=== PATIENT | male | born 2000 | race Caucasian/White ===

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

== ENCOUNTER 2021-12-05 22:51 | Emergency (ER) | payer OTHER ==
[2021-12-05 23:49] VITALS: BP 102/55; PULSE 67; RESP 20; TEMP 97.8
[2021-12-06] MEDS ORDERED: OXYMETAZOLINE 0.05% NASL SPRAY 1 SPRAY BOTTLE NASAL STA (02:26)
--- NOTE | 2021-12-06 02:32 | ED ---
ENT HPI - General Chief complaint: ENT Stated complaint: nose bleed Time Seen by Provider: 12/06/21 02:18 Source: patient, RN notes reviewed Mode of arrival: ambulatory Limitations: no limitations - History of Present Illness Initial comments: Suspect patient's injury is mostly due to soft tissue. She does have some mild tenderness over the growth plate of the distal fibula. Patient placed in an OCL splint. Crutches provided. Orthopedic follow-up given. Treatment plan discussed with the father. All questions answered. Follow-up with your child's physician as directed. Bring your child back to the emergency department immediately if any symptoms worsen or new symptoms develop. Return if any other problems arise. MD complaint: epistaxis - Related Data Previous Rx's Medication Instructions Recorded Ibuprofen [Motrin] 600 mg PO Q8HR PRN #20 tab 01/25/19 Allergies Allergy/AdvReac Type Severity Reaction Status Date / Time No Known Allergies Allergy Verified 01/24/19 18:21 Review of Systems ROS Statement: Those systems with pertinent positive or pertinent negative responses have been documented in the HPI. ROS Other: All systems not noted in ROS Statement are negative. Past Medical History Past Medical History: No Reported History Additional Past Medical History / Comment(s): bloody nose - had to be cauterized History of Any Multi-Drug Resistant Organisms: None Reported Past Surgical History: No Surgical Hx Reported Past Anesthesia/Blood Transfusion Reactions: No Reported Reaction Past Psychological History: No Psychological Hx Reported Smoking Status: Never smoker Past Alcohol Use History: None Reported Past Drug Use History: None Reported - Past Family History Mother Family Medical History: No Reported History Additional Family Medical History / Comment(s): in the family runs diabetes, high cholesterol, hypertension, cabg. Father Family Medical History: No Reported History General Exam Limitations: no limitations General appearance: alert, in no apparent distress Head exam: Present: atraumatic, normocephalic, normal inspection Eye exam: Present: normal appearance, PERRL, EOMI. Absent: scleral icterus, conjunctival injection, periorbital swelling ENT exam: Present: normal exam, normal oropharynx, mucous membranes dry, mucous membranes moist, TM's normal bilaterally, normal external ear exam, other Neck exam: Present: normal inspection, full ROM. Absent: tenderness, meningismus, lymphadenopathy Respiratory exam: Present: normal lung sounds bilaterally, other (Patient has evidence of dried blood at the external meatus of both nares. Evidence of recent bleeding from the left nasal septum. No current bleeding.). Absent: respiratory distress, wheezes, rales, rhonchi, stridor, chest wall tenderness, accessory muscle use Cardiovascular Exam: Present: regular rate, normal rhythm, normal heart sounds. Absent: systolic murmur, diastolic murmur, rubs, gallop, clicks GI/Abdominal exam: Present: soft, normal bowel sounds. Absent: distended, tenderness, guarding, rebound, rigid Extremities exam: Present: normal inspection, full ROM, normal capillary refill. Absent: tenderness, pedal edema, joint swelling, calf tenderness Back exam: Present: normal inspection Neurological exam: Present: alert, oriented X3, CN II-XII intact Psychiatric exam: Present: normal affect, normal mood Skin exam: Present: warm, dry, intact, normal color. Absent: rash Course Vital Signs 12/05/21 23:43 Temperature 97.8 F Pulse Rate 67 Respiratory 20 Rate Blood Pressure 102/55 O2 Sat by Pulse 96 Oximetry Medical Decision Making - Medical Decision Making Afrin nasal spray, 2 sprays to each there twice daily for 3 days. Patient given follow-up with ENT. Patient had no bleeding present time I saw him. Patient hemodynamically stable. Did not appear to be ill or toxic. Patient was told to return to the ER for any signs or symptoms worsen. Told to return immediately if any other problems arise. All questions answered. Treatment plan discussed. Patient in agreement Every effort has been made to ensure accuracy of this dictation. However, due to the limitations of electronic medical records and dictation devices, errors in charting still occur. Disposition Clinical Impression: Anterior epistaxis Disposition: HOME SELF-CARE Condition: Good Instructions (If sedation given, give patient instructions): Nosebleed (ED) Additional Instructions: Use the nasal spray, 2 sprays to each nostril every 12 hours for 3 days. The rest not to manipulate her nose. Make a follow-up with ear nose and throat doctor as needed. Alternatively, he can make a follow-up appointment with your regular doctor. Return if any rebleeding occurs. Is patient prescribed a controlled substance at d/c from ED?: No Referrals: Sarah Han MD [Primary Care Provider] - 1-2 days Mohit Spaulding MD [STAFF PHYSICIAN] - 12/09/21 Time of Disposition: 02:31
== END 2021-12-06 03:06 | disposition home or self-care (01) ==
LOC: EC 22:51
DX: R04.0 Epistaxis (principal)
CPT/HCPCS: 99283

== ENCOUNTER 2022-01-31 15:00 | Emergency (ER) | payer OTHER ==
[2022-01-31 15:12] VITALS: RESP 18; TEMP 98.2
--- NOTE | 2022-01-31 15:42 | ED ---
General Adult HPI - General Chief complaint: Syncope Stated complaint: syncope Time Seen by Provider: 01/31/22 15:06 Source: patient, family, EMS, RN notes reviewed Mode of arrival: EMS - History of Present Illness Initial comments: Patient is a pleasant 21-year-old male who presents to the emergency room via EMS accompanied by his mother and brother after a witnessed syncopal episode at a family gathering. He was eased to the ground at the time of the event consequently there was no trauma to any extremity or his head. There were several nurses at the scene and report that he was in what appeared to be a postictal like state for several minutes after the event. He has had one other episode of syncope when he had appendicitis prior to his appendectomy. He does admit to some pain up for approximately 36 hours. He has had episodes of dizziness in the past. He and his mother deny any known family history of seizures. He does have a family history significant for cardiovascular disease and diabetes. He is not on any medications on a regular basis and has no s ignificant past medical history. He does report that he wears earplugs for work and has occasional ear canal bleeding to his right ear from the ear plugged not fitting properly however he denies any tendinitis or ear pain. He reports no complaints or concerns prior to the event at this time he now feels well again. - Related Data Previous Rx's Medication Instructions Recorded Ibuprofen [Motrin] 600 mg PO Q8HR PRN #20 tab 01/25/19 Allergies Allergy/AdvReac Type Severity Reaction Status Date / Time No Known Allergies Allergy Verified 01/31/22 15:12 Review of Systems ROS Statement: Those systems with pertinent positive or pertinent negative responses have been documented in the HPI. ROS Other: All systems not noted in ROS Statement are negative. Past Medical History Past Medical History: No Reported History Additional Past Medical History / Comment(s): bloody nose - had to be cauterized History of Any Multi-Drug Resistant Organisms: None Reported Past Surgical History: No Surgical Hx Reported Past Anesthesia/Blood Transfusion Reactions: No Reported Reaction Past Psychological History: No Psychological Hx Reported Smoking Status: Never smoker Past Alcohol Use History: None Reported Past Drug Use History: None Reported - Past Family History Mother Family Medical History: No Reported History Additional Family Medical History / Comment(s): in the family runs diabetes, high cholesterol, hypertension, cabg. Father Family Medical History: No Reported History General Exam General appearance: alert, in no apparent distress Head exam: Present: atraumatic, normocephalic, normal inspection Eye exam: Present: normal appearance, PERRL, EOMI. Absent: scleral icterus, conjunctival injection, nystagmus, periorbital swelling ENT exam: Present: normal exam, mucous membranes moist Expanded Ear exam: Present: normal external inspection TM/Canal exam: Canal Tenderness: Right TM Mouth exam: Present: normal external inspection Neck exam: Present: normal inspection. Absent: tenderness, meningismus, lymphadenopathy Respiratory exam: Present: normal lung sounds bilaterally. Absent: respiratory distress, wheezes, rales, rhonchi, stridor Cardiovascular Exam: Present: regular rate, normal rhythm, normal heart sounds. Absent: systolic murmur, diastolic murmur, rubs, gallop, clicks GI/Abdominal exam: Present: soft, normal bowel sounds. Absent: distended, tenderness, guarding, rebound, rigid Extremities exam: Present: normal inspection, full ROM, normal capillary refill. Absent: tenderness, pedal edema, joint swelling, calf tenderness Back exam: Present: normal inspection Neurological exam: Present: alert, oriented X3, CN II-XII intact Psychiatric exam: Present: normal affect, normal mood Skin exam: Present: warm, dry, intact, normal color. Absent: rash Course Vital Signs 01/31/22 01/31/22 01/31/22 15:04 15:51 17:12 Temperature 98.2 F Pulse Rate 62 66 Respiratory 18 18 Rate Blood Pressure 99/49 102/54 106/56 O2 Sat by Pulse 98 97 Oximetry Medical Decision Making - Medical Decision Making Given concern for postictal event will check CT of the brain. Will check CBC and BMP to check for dehydration and anemia. Along with infectious process. Will check urinalysis for urinary tract infection and urine drug screen. Will check EKG for acute abnormalities. No murmurs gallops or rubs heard on exam. No neurological deficits noted on exam. Given extensive diabetic history will also check A1c.. Currently resting comfortably without any altered mental status dizziness or nausea. Will monitor. Labs without acute abnormalities. EKG shows mild bradycardia without other abnormalities. Vital signs stable though low normal blood pressure. No further episodes of syncope. Computed tomography scan without acute cranial intracranial processes. Symptoms likely due to vagal event 1 L fluid bolus given. Findings discussed with patient and family. Will plan for discharge home with follow-up for with PCP for further syncopal workup. Case discussed with Naya. - Lab Data Result diagrams: 01/31/22 15:55 01/31/22 15:55 Lab Results 01/31/22 01/31/22 01/31/22 Range/Units 15:55 15:55 15:55 WBC 9.0 (4.0-11.0) k/uL RBC 4.49 (4.30-5.90) m/uL Hgb 13.7 (13.0-17.5) gm/dL Hct 40.5 (39.0-53.0) % MCV 90.2 (80.0-100.0) fL MCH 30.5 (25.0-35.0) pg MCHC 33.8 (31.0-37.0) g/dL RDW 12.3 (11.5-15.5) % Plt Count 226 (150-450) k/uL MPV 7.8 Neutrophils % 70 % Lymphocytes % 17 % Monocytes % 9 % Eosinophils % 2 % Basophils % 1 % Neutrophils # 6.3 (1.3-7.7) k/uL Lymphocytes # 1.5 (1.0-4.8) k/uL Monocytes # 0.8 (0-1.0) k/uL Eosinophils # 0.1 (0-0.7) k/uL Basophils # 0.1 (0-0.2) k/uL Sodium 139 (137-145) mmol/L Potassium 4.2 (3.5-5.1) mmol/L Chloride 106 (98-107) mmol/L Carbon Dioxide 28 (22-30) mmol/L Anion Gap 5 mmol/L BUN 16 (9-20) mg/dL Creatinine 0.95 (0.66-1.25) mg/dL Est GFR (CKD-EPI)AfAm >90 (>60 ml/min/1.73 sqM) Est GFR (CKD-EPI)NonAf >90 (>60 ml/min/1.73 sqM) Glucose 96 (74-99) mg/dL Calcium 9.3 (8.4-10.2) mg/dL Total Bilirubin 1.3 (0.2-1.3) mg/dL AST 31 (17-59) U/L ALT 23 (4-49) U/L Alkaline Phosphatase 84 (38-126) U/L Troponin I (0.000-0.034) ng/mL Total Protein 7.1 (6.3-8.2) g/dL Albumin 4.4 (3.5-5.0) g/dL Urine Color Yellow Urine Appearance Clear (Clear) Urine pH 6.5 (5.0-8.0) Ur Specific [place] 1.030 (1.001-1.035) Urine Protein 1+ H (Negative) Urine Glucose (UA) Negative (Negative) Urine Ketones Negative (Negative) Urine Blood Negative (Negative) Urine Nitrite Negative (Negative) Urine Bilirubin Negative (Negative) Urine Urobilinogen 2.0 (<2.0) mg/dL Ur Leukocyte Esterase Negative (Negative) Urine RBC 11 H (0-5) /hpf Urine WBC 4 (0-5) /hpf Ur Squamous Epith Cells <1 (0-4) /hpf Urine Bacteria Moderate H (None) /hpf Urine Mucus Few H (None) /hpf Urine Opiates Screen Not Detected (NotDetected) Ur Oxycodone Screen Not Detected (NotDetected) Urine Methadone Screen Not Detected (NotDetected) Ur Propoxyphene Screen Not Detected (NotDetected) Ur Barbiturates Screen Not Detected (NotDetected) U Tricyclic Antidepress Not Detected (NotDetected) Ur Phencyclidine Scrn Not Detected (NotDetected) Ur Amphetamines Screen Not Detected (NotDetected) U Methamphetamines Scrn Not Detected (NotDetected) U Benzodiazepines Scrn Not Detected (NotDetected) Urine Cocaine Screen Not Detected (NotDetected) U Marijuana (THC) Screen Not Detected (NotDetected) 01/31/22 Range/Units 15:55 WBC (4.0-11.0) k/uL RBC (4.30-5.90) m/uL Hgb (13.0-17.5) gm/dL Hct (39.0-53.0) % MCV (80.0-100.0) fL MCH (25.0-35.0) pg MCHC (31.0-37.0) g/dL RDW (11.5-15.5) % Plt Count (150-450) k/uL MPV Neutrophils % % Lymphocytes % % Monocytes % % Eosinophils % % Basophils % % Neutrophils # (1.3-7.7) k/uL Lymphocytes # (1.0-4.8) k/uL Monocytes # (0-1.0) k/uL Eosinophils # (0-0.7) k/uL Basophils # (0-0.2) k/uL Sodium (137-145) mmol/L Potassium (3.5-5.1) mmol/L Chloride (98-107) mmol/L Carbon Dioxide (22-30) mmol/L Anion Gap mmol/L BUN (9-20) mg/dL Creatinine (0.66-1.25) mg/dL Est GFR (CKD-EPI)AfAm (>60 ml/min/1.73 sqM) Est GFR (CKD-EPI)NonAf (>60 ml/min/1.73 sqM) Glucose (74-99) mg/dL Calcium (8.4-10.2) mg/dL Total Bilirubin (0.2-1.3) mg/dL AST (17-59) U/L ALT (4-49) U/L Alkaline Phosphatase (38-126) U/L Troponin I <0.012 (0.000-0.034) ng/mL Total Protein (6.3-8.2) g/dL Albumin (3.5-5.0) g/dL Urine Color Urine Appearance (Clear) Urine pH (5.0-8.0) Ur Specific [place] (1.001-1.035) Urine Protein (Negative) Urine Glucose (UA) (Negative) Urine Ketones (Negative) Urine Blood (Negative) Urine Nitrite (Negative) Urine Bilirubin (Negative) Urine Urobilinogen (<2.0) mg/dL Ur Leukocyte Esterase (Negative) Urine RBC (0-5) /hpf Urine WBC (0-5) /hpf Ur Squamous Epith Cells (0-4) /hpf Urine Bacteria (None) /hpf Urine Mucus (None) /hpf Urine Opiates Screen (NotDetected) Ur Oxycodone Screen (NotDetected) Urine Methadone Screen (NotDetected) Ur Propoxyphene Screen (NotDetected) Ur Barbiturates Screen (NotDetected) U Tricyclic Antidepress (NotDetected) Ur Phencyclidine Scrn (NotDetected) Ur Amphetamines Screen (NotDetected) U Methamphetamines Scrn (NotDetected) U Benzodiazepines Scrn (NotDetected) Urine Cocaine Screen (NotDetected) U Marijuana (THC) Screen (NotDetected) - EKG Data EKG Comments: EKG shows sinus bradycardia, ventricular rate 56 bpm UT interval 121 ms, QRS duration 96 ms, QT/QTC 388/380 ms, PRT axes 27, 73, 64. - Radiology Data Radiology results: report reviewed, image reviewed CT brain without contrast ventricles have normal size. There is no mass effect or midline shift. No sign of intracranial hemorrhage. The capillary and is intact. There is normal aeration of the mastoids and sinuses Disposition Clinical Impression: Vasovagal syncope Disposition: HOME SELF-CARE Condition: Stable Instructions (If sedation given, give patient instructions): Syncope (ED) Additional Instructions: Please stay well hydrated especially when out in the heat. If feeling dizzy change positions slowly and maintain safety. Please follow-up with your primary care provider regarding possible further syncopal workup. Please return to the emergency room if symptoms worsen or other concerns. Is patient prescribed a controlled substance at d/c from ED?: No Referrals: Sarah Han MD [Primary Care Provider] - 1-2 days Time of Disposition: 17:59
--- NOTE | 2022-01-31 16:00 | CT ---
EXAMINATION TYPE: CT brain wo con DATE OF EXAM: 01/31/2022 COMPARISON: 03/04/2011 HISTORY: syncope CT DLP: 1198.4 mGycm Automated exposure control for dose reduction was used. Ventricles have normal size. There is no mass effect or midline shift. No sign of intracranial hemorr lynn. The calvarium is intact. There is normal aeration of the mastoid sinuses. IMPRESSION: Negative CT scan of the brain.
[2022-01-31 16:12] LABS: Basophils # (A) 0.1 k/uL (0-0.2); Basophils % (A) 1 %; Eosinophils # (A) 0.1 k/uL (0-0.7); Eosinophils % (A) 2 %; HCT 40.5 % (39.0-53.0); HGB 13.7 gm/dL (13.0-17.5); Lymphocytes # (A) 1.5 k/uL (1.0-4.8); Lymphocytes % (A) 17 %; MCH 30.5 pg (25.0-35.0); MCHC 33.8 g/dL (31.0-37.0); MCV 90.2 fL (80.0-100.0); Mean Platelet Volume 7.8; Monocytes # (A) 0.8 k/uL (0-1.0); Monocytes % (A) 9 %; Neutrophils # (A) 6.3 k/uL (1.3-7.7); Neutrophils % (A) 70 %; Platelet Count 226 k/uL (150-450); RBC 4.49 m/uL (4.30-5.90); RDW 12.3 % (11.5-15.5)
[2022-01-31 16:17] LABS: ALT 23 U/L (4-49); AST 31 U/L (17-59); African American GFR (CKD) >90 (>60 ml/min/1.73 sqM); Albumin 4.4 g/dL (3.5-5.0); Alkaline Phosphatase 84 U/L (38-126); Anion Gap 5 mmol/L; Blood Urea Nitrogen 16 mg/dL (9-20); Calcium 9.3 mg/dL (8.4-10.2); Carbon Dioxide 28 mmol/L (22-30); Chloride 106 mmol/L (98-107); Glucose 96 mg/dL (74-99); Non-African American GFR(CKD) >90 (>60 ml/min/1.73 sqM); Potassium 4.2 mmol/L (3.5-5.1); Sodium 139 mmol/L (137-145); Total Bilirubin 1.3 mg/dL (0.2-1.3); Total Protein 7.1 g/dL (6.3-8.2)
[2022-01-31 16:28] LABS: Amphetamine Screen,Urine Not Detected (NotDetected); Appearance,Urine Clear (Clear); Bacteria,Urine Moderate /hpf; Barbiturate Screen,Urine Not Detected (NotDetected); Benzodiazepines Screen,Urine Not Detected (NotDetected); Bilirubin,Urine Negative (Negative); Blood,Urine Negative (Negative); Cocaine Screen,Urine Not Detected (NotDetected); Color,Urine Yellow; Glucose,Urine (UA) Negative (Negative); Ketones,Urine Negative (Negative); Leukocyte Esterase,Urine Negative (Negative); Methadone Screen, Urine Not Detected (NotDetected); Mucus,Urine Few /hpf; Nitrite,Urine Negative (Negative); Opiate Screen,Urine Not Detected (NotDetected); Oxycodone Screen, Urine Not Detected (NotDetected); PH, Urine 6.5 (5.0-8.0); Phencyclidine Screen,Urine Not Detected (NotDetected); Protein,Urine 1+ (Negative); RBC,Urine 11 /hpf (0-5); Squamous Epithelial Cell,Urine <1 /hpf (0-4); Tricyclic Antidepressant,Urine Not Detected (NotDetected); Urn Cannabinoid Scrn Not Detected (NotDetected); WBC,Urine 4 /hpf (0-5)
[2022-01-31 17:14] VITALS: BP 106/56; PULSE 66
[2022-01-31] MEDS ORDERED: SODIUM CHLORIDE 0.9% 1,000 ML IV ONE (17:15)
== END 2022-01-31 18:23 | disposition home or self-care (01) ==
LOC: EC 15:00
DX: R55 Syncope and collapse (principal)
CPT/HCPCS: 36415; 70450; 80053; 80306; 81001; 83036; 84484; 85025; 93005; 99284

== ENCOUNTER 2023-11-29 17:29 | Inpatient (IN) | payer BC, OTHER ==
--- NOTE | 2023-11-29 18:07 | ED ---
General Adult HPI - General Chief complaint: Psychiatric Symptoms Stated complaint: mental health Time Seen by Provider: 11/29/23 17:47 Source: patient, family, RN notes reviewed, old records reviewed Mode of arrival: ambulatory Limitations: no limitations - History of Present Illness Initial comments: 23-year-old male presenting for psychiatric evaluation. Patient has suicidal ideation with suicidal plan to jump in the water. He does deal with anxiety and depression. He is accompanied by his mother. He has no physical complaints at this time. - Related Data Home Medications Medication Instructions Recorded Confirmed Citalopram Hydrobromide [CeleXA] 40 mg PO DAILY 11/29/23 11/29/23 buPROPion XL [Wellbutrin XL] 150 mg PO DIRECTED 11/29/23 11/29/23 busPIRone HCl [Buspar] 10 mg PO BID 11/29/23 11/29/23 Allergies Allergy/AdvReac Type Severity Reaction Status Date / Time No Known Allergies Allergy Verified 11/29/23 18:19 Review of Systems ROS Statement: Those systems with pertinent positive or pertinent negative responses have been documented in the HPI. ROS Other: All systems not noted in ROS Statement are negative. Past Medical History Past Medical History: No Reported History Additional Past Medical History / Comment(s): bloody nose - had to be cauterized History of Any Multi-Drug Resistant Organisms: None Reported Past Surgical History: No Surgical Hx Reported Past Anesthesia/Blood Transfusion Reactions: No Reported Reaction Past Psychological History: No Psychological Hx Reported Smoking Status: Never smoker Past Alcohol Use History: None Reported Past Drug Use History: None Reported - Past Family History Mother Family Medical History: No Reported History Additional Family Medical History / Comment(s): in the family runs diabetes, high cholesterol, hypertension, cabg. Father Family Medical History: No Reported History General Exam Limitations: no limitations General appearance: alert, anxious Head exam: Present: atraumatic, normocephalic Eye exam: Present: normal appearance, PERRL ENT exam: Present: normal oropharynx Neck exam: Present: normal inspection. Absent: tenderness, meningismus Respiratory exam: Present: normal lung sounds bilaterally. Absent: respiratory distress, wheezes Cardiovascular Exam: Present: regular rate, normal rhythm GI/Abdominal exam: Present: soft. Absent: distended, tenderness Extremities exam: Present: normal inspection, normal capillary refill Neurological exam: Present: alert, oriented X3, CN II-XII intact. Absent: motor sensory deficit Psychiatric exam: Present: normal affect, normal mood Skin exam: Present: warm, dry, intact Course Vital Signs 11/29/23 17:42 Temperature 98.3 F Pulse Rate 74 Respiratory 18 Rate Blood Pressure 129/78 O2 Sat by Pulse 99 Oximetry Medical Decision Making - Medical Decision Making Was pt. sent in by a medical professional or institution (, SANTI, DRUG AND ALCOHOL COUNSELOR, urgent care, hospital, or [facility]...) When possible be specific @ -No Did you speak to anyone other than the patient for history (EMS, parent, family, police, friend...)? What history was obtained from this source @ -No Did you review nursing and triage notes (agree or disagree)? Why? @ -I reviewed and agree with nursing and triage notes Were old charts reviewed (outside hosp., previous admission, EMS record, old EKG, old radiological studies, urgent care reports/EKG's, [facility] records)? Report findings @ -No old charts were reviewed Differential Mental Health Depression, anxiety, bipolar, psychosis, schizophrenia, borderline personality, situational depression, adjustment disorder, behavioral disorder, brain tumor, malingering, substance abuse, encephalopathy, medication reaction, dementia, hypothyroidism, degenerative neurologic disorder, lupus.... This is not meant to be all-inclusive list EKG interpreted by me (3pts min.). @ -As above X-rays interpreted by me (1pt min.). @ -None done CT interpreted by me (1pt min.). @ -None done U/S interpreted by me (1pt. min.). @ -None done What testing was considered but not performed or refused? (CT, X-rays, U/S, labs)? Why? @ -None What meds were considered but not given or refused? Why? @ -None Did you discuss the management of the patient with other professionals (professionals i.e. SANTI Lara, DRUG AND ALCOHOL COUNSELOR, lab, RT, psych nurse, social sciences professor, grinder chipper, teacher, workers' compensation hearings officer, hospice case manager)? Give summary @ -No Was smoking cessation discussed for >3mins.? @ -No Was critical care preformed (if so, how long)? @Yes, 35 minutes for suicidal ideation with plan. Were there social determinants of health that impacted care today? How? (Homelessness, low income, unemployed, alcoholism, drug addiction, transportation, low edu. Level, literacy, decrease access to med. care, [place] [facility], rehab)? @ -No Was there de-escalation of care discussed even if they declined (Discuss DNR or withdrawal of care, Hospice)? DNR status @ -No What co-morbidities impacted this encounter? (DM, HTN, Smoking, COPD, CAD, Cancer, CVA, ARF, Chemo, Hep., AIDS, mental health diagnosis, sleep apnea, morbid obesity)? @Anxiety and depression Was patient admitted / discharged? Hospital course, mention meds given and route, prescriptions, significant lab abnormalities, going to OR and other pertinent info. @ -Patient medically cleared and awaiting EPS evaluation Patient was evaluated by EPS and will be admitted for depression with suicidal ideation and active suicidal plan. Critical Care Time Critical Care Time: Yes Total Critical Care Time: 35 Disposition Clinical Impression: Suicidal ideation, Depression Disposition: ADMITTED IP TO THIS HOSP Condition: Stable Is patient prescribed a controlled substance at d/c from ED?: No Referrals: None,Stated [Primary Care Provider] - 1-2 days Time of Disposition: 20:42
[2023-11-29] MEDS ORDERED: haloperidoL 5 MG TAB PO PRN (23:43)
[2023-11-29] MEDS ORDERED: MAG HYDROX/AL HYDROX/SIMETH 355 ML BOTTLE PO PRN (23:43)
[2023-11-29] MEDS ORDERED: LORazepam 2 MG/ML INJ IM PRN (23:43)
[2023-11-29] MEDS ORDERED: IBUPROFEN 600 MG TAB PO PRN (23:43)
[2023-11-29] MEDS ORDERED: HALOPERIDOL LACTATE 5 MG/ML 1 ML VIAL IM PRN (23:43)
[2023-11-29] MEDS ORDERED: ACETAMINOPHEN TAB 325 MG TAB PO PRN (23:43)
[2023-11-29] MEDS ORDERED: MAGNESIUM HYDROXIDE 2,400 MG/30 ML CUP PO PRN (23:43)
[2023-11-30] MEDS: busPIRone HCl 10 MG TAB PO SCH ×2 (09:17→20:58)
[2023-11-30 12:17] LABS: Basophils % (A) 1 %; Eosinophils # (A) 0.1 k/uL (0-0.7); Eosinophils % (A) 2 %; HCT 48.7 % (39.0-53.0); HGB 16.3 gm/dL (13.0-17.5); Lymphocytes # (A) 1.8 k/uL (1.0-4.8); Lymphocytes % (A) 35 %; MCH 30.4 pg (25.0-35.0); MCHC 33.4 g/dL (31.0-37.0); Mean Platelet Volume 7.7; Monocytes # (A) 0.4 k/uL (0-1.0); Monocytes % (A) 9 %; Neutrophils # (A) 2.6 k/uL (1.3-7.7); Neutrophils % (A) 50 %; Platelet Count 214 k/uL (150-450); RBC 5.35 m/uL (4.30-5.90); RDW 12.9 % (11.5-15.5); WBC 5.2 k/uL (3.8-10.6)
[2023-11-30 12:22] LABS: ALT 15 U/L (4-49); AST 26 U/L (17-59); African American GFR (CKD) >90 (>60 ml/min/1.73 sqM); Alkaline Phosphatase 66 U/L (38-126); Anion Gap 8 mmol/L; Bilirubin, Delta 0.1 mg/dL (0.0-0.2); Bilirubin,Unconjugated 3.1 mg/dL (0.0-1.1); Blood Urea Nitrogen 18 mg/dL (9-20); Calcium 9.9 mg/dL (8.4-10.2); Carbon Dioxide 28 mmol/L (22-30); Chloride 104 mmol/L (98-107); Glucose 79 mg/dL (74-99); Non-African American GFR(CKD) >90 (>60 ml/min/1.73 sqM); Potassium 4.3 mmol/L (3.5-5.1); Sodium 140 mmol/L (137-145); Total Bilirubin 3.2 mg/dL (0.2-1.3); Total Protein 8.4 g/dL (6.3-8.2)
--- NOTE | 2023-11-30 12:27 | P.HP ---
Psychiatric H&P - . H&P Date: 11/30/23 History & Physical: Allergies Allergy/AdvReac Type Severity Reaction Status Date / Time No Known Allergies Allergy Verified 11/29/23 23:47 Vital Signs Temp 97.9 F 11/30/23 06:41 Pulse 56 L 11/30/23 06:41 Resp 14 11/30/23 06:41 BP 89/52 11/30/23 06:41 Pulse Ox 98 11/30/23 00:51 FiO2 Intake & Output 11/29/23 11/30/23 11/30/23 18:59 06:59 18:59 Weight 57.606 kg 55.99 kg Laboratory Last Values Influenza Type A (PCR) Not Detected (Not Detectd) 11/29/23 22:44 Influenza Type B (PCR) Not Detected (Not Detectd) 11/29/23 22:44 RSV (PCR) Not Detected (Not Detectd) 11/29/23 22:44 SARS-CoV-2 (PCR) Not Detected (Not Detectd) 11/29/23 22:44 11/30/23 08:51 IDENTIFYING DATA: Patient is a 23-year-old male. Lives in an apartment with his recent ex-girlfriend. Works in a factory. No children. HPI: Patient presented to the hospital on 11/28. As per EPS note, "pt's mother, Marion, at bedside; Marion remained at pt's request. pt presents with flat affect and soft tone. pt states, "I was going to jump in the river after work." pt reports that he has been struggling with multiple stressors recently. pt had apparently met his ex-girlfriend on a dating site and had signed a lease for the apartment with her after a couple of weeks. 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 pt states that he is now paying all the bills as well. pt also reports that he had lost his debit card and had a lot of fraudulant charges. pt states that he had told his ex that he was going to jump in the river and she called police. pt states that the police and her brother met him at work and brought him to the hospital. pt continues to report SI with plan. pt denies HI and hallucinations. No delusional thoughts verbalized. pt cooperative with assessment." Upon todays interview, patient states that he has been fighting with his girlfriend in the past month, which led to them breaking up. States he went to work, and just kept thinking about the fighting, and states that he had a plan to jump in the river, and he wanted to disappear. Claims he feels fine right now, but prior to coming in, he has been depressed, and anxious. Patient states he sleeps well, and his appetite is good. Patient denies any suicidal or homicidal ideations intent or plan. At this time patient denies any auditory or visual hallucinations. Patient denies any flight of ideas racing thoughts and increased in goal directed behavior. Patient admits to using marijuana, very rarely. Rarely drinks alcohol. PAST PSYCHIATRIC HISTORY: Patient states that he does sees someone through [facility] . Patient is on Celexa and Buspar. He sees a AUTO PORTER there. No previous psych admissions, never attempted suicide PMH:As per ER note ALLERGIES: as per EMR CHEMICAL DEPENDENCY HISTORY: as per HPI FAMILY PSYCHIATRIC/SUBSTANCE USE HISTORY: Depression on his mothers side. SOCIAL HISTORY: Patient was born and raised in [place]. High school graduate. lives in an apartment with his ex, no children. Works in a factory. Denies legal problems MENTAL STATUS EXAM: General Appearance: Patient appears to be stated age is alert, directable, and attempts to cooperate. Patient appears to have good hygiene and grooming. Dressed in his own clothes, wearing glasses. Behavior: Patient is seated without any agitated behavior. Speech: Patient's speech is fluent and nonpressured. soft tone of voice Mood/Affect: Patient reports their mood is depressed, affect is congruent and constricted. flat. Suicidality/Homicidality: Patient denies having any homicidal ideation intent or plan. Denies any suicidal ideations intent or plan Perceptions: Patient denies any visual hallucinations and denies any auditory hallucinations Though content/process: There is no evidence of any delusional thought content and thought process is linear and goal-directed. Memory and concentration: AOX3, grossly intact for the purposes of this session. Can spell "WORLD" backwards Judgment and insight: Poor STRENGTHS/WEAKNESSES: strength is that patient is resilient. 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 Patient has signed adult voluntary form and medication consent and is placed in patient's chart. -Medications : Will start patient on buspar 20mg bid for anxiety, zoloft 50mg daily for depression/anxiety, trazodone 50mg po qhs prn for sleep -Ativan and Haldol PRN for agitation/aggression -Patient was counselled on substance abuse and desired to cut back on use -Patient was informed of the risks, benefits and side effects of the medication and patient verbally consented to taking the medications. -Internal Medicine consult to perform medical evaluation and physical. -NRT -nicotine patch -SW on board for discharge planning. Encourage patient to participate in groups to work on coping skills. 11/30/23 12:06
[2023-11-30] MEDS: SERTRALINE 50 MG TAB PO SCH (12:36)
[2023-11-30 19:22] LABS: Chol/HDL Ratio 2.69 Ratio; LDL Cholesterol,Calculated 103.9 mg/dL (0.0-131.0); VLDL Calculation 10.44 mg/dL (5.00-40.00)
--- NOTE | 2023-12-01 04:37 | P.CONS ---
History of Present Illness - Reason for Consult Consult date: 12/01/23 - History of Present Illness The patient is a 23-year-old male with no known PMH who had presented to the emergency room with complaints of depression with suicidal ideation. Patient was admitted to the mental health unit where he was seen and evaluated. Patient notes that he has been struggling with his mental health due to multiple fights with his girlfriend. He denies any physical complaints at the time of intervi ew. He denies tobacco use, alcohol use, or illicit substance use. Denies experiencing chest discomfort, shortness of breath, fever, chills, cough, nausea, vomiting, abdominal pain, diarrhea. Review of systems: Pertinent positives and negatives as discussed in HPI, a complete review of systems was performed and all other systems are negative. Physical examination: General: non toxic, no distress, appears at stated age, normal weight Derm: no unusual rashes/lesions, no unusual ecchymoses, warm, dry Head: atraumatic, normocephalic, symmetric Eyes: EOMI, no lid lag, anicteric sclera ENT: Nose and ears atraumatic, no thrush, no pharyngeal erythema Neck: trachea midline, supple Mouth: no lip lesion, mucus membranes moist Cardiovascular: S1S2 reg, no murmur, no edema Lungs: CTA bilateral, no rhonchi, no rales , no accessory muscle use Abdominal: soft, nontender to palpation, no guarding Ext: no gross muscle atrophy, no contractures, Neuro: No gross focal neuro deficits noted Psych: Alert, oriented, appropriate affect Assessment: Depression and suicidal ideation Elevated total bilirubin, low unconjugated bilirubin, 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 We will follow peripherally. Do not hesitate to contact us with questions. Someone can be reached from the [facility] hospitalist group at all hours of the day at [phone]. Past Medical History Past Medical History: No Reported History Additional Past Medical History / Comment(s): bloody nose - had to be cauterized History of Any Multi-Drug Resistant Organisms: None Reported Past Surgical History: No Surgical Hx Reported Past Anesthesia/Blood Transfusion Reactions: No Reported Reaction Past Psychological History: No Psychological Hx Reported Smoking Status: Never smoker Past Alcohol Use History: None Reported Additional Past Alcohol Use History / Comment(s): father smokes outside of home Past Drug Use History: None Reported - Past Family History Mother Family Medical History: No Reported History Additional Family Medical History / Comment(s): in the family runs diabetes, high cholesterol, hypertension, cabg. Father Family Medical History: No Reported History Medications and Allergies Home Medications Medication Instructions Recorded Confirmed Type Citalopram Hydrobromide [CeleXA] 40 mg PO DAILY 11/29/23 11/29/23 History buPROPion XL [Wellbutrin XL] 150 mg PO DIRECTED 11/29/23 11/29/23 History busPIRone HCl [Buspar] 10 mg PO BID 11/29/23 11/29/23 History Allergies Allergy/AdvReac Type Severity Reaction Status Date / Time No Known Allergies Allergy Verified 11/29/23 23:47 Physical Exam Vitals: Vital Signs Temp Pulse Resp BP 11/30/23 06:41 97.9 F 56 L 14 89/52 Results CBC & Chem 7: 11/30/23 11:35 11/30/23 11:35 Labs: Abnormal Lab Results - Last 24 Hours (Table) 11/30/23 Range/Units 11:35 Total Bilirubin 3.2 H (0.2-1.3) mg/dL Unconjugated Bilirubin 3.1 H (0.0-1.1) mg/dL Total Protein 8.4 H (6.3-8.2) g/dL HDL Cholesterol 67.70 H (40.00-60.00) mg/dL TSH 0.440 L (0.465-4.680) mIU/L
--- NOTE | 2023-12-01 11:24 | P.PN ---
Progress Note - Text Progress Note Date: 12/01/23 Interval History: Patient was seen [wandering the hallways] and was directable and agreeable to speak with sheet writer in the office. Patient states he feels "better" today. Patient states he slept well last night. He is going to some groups. Patient still having a flat effect. He is a bit guarded. States that his ex girlfriend is getting evicted from his apartment within the next week or so, so that will make his living situation better. His brother came to visit him last night, and he enjoyed their visit. At this time patient denies any suicidal or homicidal ideations, intent or plan. Patient denies any auditory, visual hallucinations and denies any paranoia or delusions. Patient denies any side effects from the medications and has been compliant with meds. MENTAL STATUS EXAM: General Appearance: Patient appears to be stated age is alert, directable, and attempts to cooperate. Patient appears to have good hygiene and grooming. Dressed in his own clothes, wearing glasses. Behavior: Patient is seated without any agitated behavior. guarded Speech: Patient's speech is fluent and nonpressured. soft tone of voice Mood/Affect: Patient reports their mood is depressed, affect is congruent and constricted. flat. Suicidality/Homicidality: Patient denies having any homicidal ideation intent or plan. Denies any suicidal ideations intent or plan Perceptions: Patient denies any visual hallucinations and denies any auditory hallucinations Though content/process: There is no evidence of any delusional thought content and thought process is linear and goal-directed. Memory and concentration: AOX3, grossly intact for the purposes of this session. 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 Patient has signed adult voluntary form and medication consent and is placed in patient's chart. -Medications : buspar 20mg bid for anxiety, zoloft 50mg daily for depression/anxiety, trazodone 50mg po qhs prn for sleep -Ativan and Haldol PRN for agitation/aggression -NRT -nicotine patch -SW on board for discharge planning. Encourage patient to participate in groups to work on coping skills. Likely discharge Tuesday, if patient continues to improve.
[2023-12-01 11:25] LABS: Amphetamine Screen,Urine Not Detected (NotDetected); Barbiturate Screen,Urine Not Detected (NotDetected); Benzodiazepines Screen,Urine Not Detected (NotDetected); Cocaine Screen,Urine Not Detected (NotDetected); Methadone Screen, Urine Not Detected (NotDetected); Opiate Screen,Urine Not Detected (NotDetected); Oxycodone Screen, Urine Not Detected (NotDetected); Phencyclidine Screen,Urine Not Detected (NotDetected); Tricyclic Antidepressant,Urine Not Detected (NotDetected); Urn Cannabinoid Scrn Not Detected (NotDetected)
[2023-12-02 02:08] LABS: Appearance,Urine Clear (Clear); Bilirubin,Urine Negative (Negative); Blood,Urine Negative (Negative); Color,Urine Colorless; Glucose,Urine (UA) Negative (Negative); Ketones,Urine Negative (Negative); Leukocyte Esterase,Urine Negative (Negative); Nitrite,Urine Negative (Negative); Protein,Urine Negative (Negative); Specific Gravity,Urine 1.008 (1.001-1.035); Urobilinogen,Urine <2.0 mg/dL (<2.0)
--- NOTE | 2023-12-02 11:07 | P.PN ---
Progress Note - Text Progress Note Date: 12/02/23 Interval History: Patient was seen [wandering the hallways] and was directable and agreeable to speak with typewriter tester in the office. wandering the hallways Patient states he feels "great" today. Patient states he slept good last night. Patient is going to groups, he attends, but does not share much in groups. Technical Artist explained to the patient that he will stay admitted on the unit over the weekend, to return him to baseline, as patient is still endorsing some anxiety. At this time patient denies any suicidal or homicidal ideations, intent or plan. Patient denies any auditory, visual hallucinations and denies any paranoia or delusions. Patient denies any side effects from the medications and has been compliant with meds. MENTAL STATUS EXAM: General Appearance: Patient appears to be stated age is alert, directable, and attempts to cooperate. Patient appears to have good hygiene and grooming. Dressed in his own clothes, wearing glasses. Behavior: Patient is seated without any agitated behavior. guarded Speech: Patient's speech is fluent and nonpressured. soft tone of voice Mood/Affect: Patient reports their mood is depressed, affect is congruent and constricted. flat. Suicidality/Homicidality: Patient denies having any homicidal ideation intent or plan. Denies any suicidal ideations intent or plan Perceptions: Patient denies any visual hallucinations and denies any auditory hallucinations Though content/process: There is no evidence of any delusional thought content and thought process is linear and goal-directed. concrete. Memory and concentration: AOX3, grossly intact for the purposes of this session. 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 Patient has signed adult voluntary form and medication consent and is placed in patient's chart. -Medications : buspar 20mg bid for anxiety, zoloft 50 mg daily for depression/anxiety, trazodone 50mg po qhs prn for sleep -Ativan and Haldol PRN for agitation/aggression -NRT -nicotine patch -SW on board for discharge planning. Encourage patient to participate in groups to work on coping skills. Likely discharge Tuesday, if patient continues to improve.
[2023-12-03 06:56] VITALS: RESP 16
--- NOTE | 2023-12-03 10:56 | P.PN ---
Subjective Progress Note Date: 12/03/23 Patient Name: James Verdin Date of : [birth year] Patient Status: Inpatient Attending Provider: Finn Lr Date: 12/03/23 Subjective data: The patient was seen in his room where he was laying comfortably Patient was pleasant in interaction and stated that he was doing well He denies that he is having any problems or issues He was offered for any help during the weekend until his primary psychiatrist returns back after the weekend he states that he is very happy with his current medications and the support P. Patient states he slept good last night. . At this time patient denies any suicidal or homicidal ideations, intent or plan. Patient denies any auditory, visual hallucinations and denies any paranoia or delusions. Patient denies any side effects from the medications and has been compliant with meds. MENTAL STATUS EXAM: General Appearance: Patient appears to be stated age is alert, directable, Patient appears to have good hygiene and grooming. Dressed in his own clothes, wearing glasses. Has an earring in one of his ears Behavior: Patient is laying down without any agitated behavior. Speech: Patient's speech is fluent and nonpressured. soft tone of voice Mood/Affect: Patient reports their mood is fine, affect is congruent and con stricted. Suicidality/Homicidality: Patient denies having any homicidal ideation intent or plan. Denies any suicidal ideations intent or plan Perceptions: Patient denies any visual hallucinations and denies any auditory hallucinations Though content/process: There is no evidence of any delusional thought content and thought process is linear and goal-directed. concrete. Memory and concentration: AOX3, grossly intact for the purposes of this session. 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 Patient has signed adult voluntary form and medication consent and is placed in patient's chart. -Medications : buspar 20mg bid for anxiety, zoloft 50 mg daily for depression/anxiety, Trazodone 50mg po qhs prn for sleep -Ativan and Haldol PRN for agitation/aggression -NRT -nicotine patch -SW on board for discharge planning. Encourage patient to participate in groups to work on coping skills. Likely discharge Tuesday, if patient continues to improve. Robert Casillas MD Objective - Vital Signs Vital signs: Vital Signs Temp 98.2 F 12/03/23 06:00 Pulse 77 12/03/23 06:00 Resp 16 12/03/23 06:00 BP 110/53 12/03/23 06:00 Pulse Ox 98 12/03/23 06:00 FiO2 - Labs CBC & Chem 7: 11/30/23 11:35 11/30/23 11:35
[2023-12-04] MEDS: LORazepam 1 MG TAB PO PRN (03:31)
[2023-12-04 06:13] VITALS: TEMP 98.1
[2023-12-04] MEDS: BENZOCAINE/MENTHOL LOZENG 1 EACH LOZENGE MUCOUS MEM PRN (08:18)
[2023-12-04] MEDS: LORATADINE 10 MG TAB PO SCH (11:39)
--- NOTE | 2023-12-04 11:50 | P.PN ---
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 Dressed in his own clothes, wearing glasses. Has an earring in one of his ears Behavior: Patient is laying down without any agitated behavior. Speech: Patient's speech is fluent and nonpressured. soft tone of voice Mood/Affect: Patient reports their mood is fine, affect is congruent and constricted. Suicidality/Homicidality: Patient denies having any homicidal ideation intent or plan. Denies any suicidal ideations intent or plan Perceptions: Patient denies any visual hallucinations and denies any auditory hallucinations Though content/process: There is no evidence of any delusional thought content and thought process is linear and goal-directed. concrete. Memory and concentration: AOX3, grossly intact for the purposes of this session. 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 Patient has signed adult voluntary form and medication consent and is placed in patient's chart. -Medications : buspar 20mg bid for anxiety, zoloft 50 mg daily for depression/anxiety, Trazodone 50mg continuepo qhs prn for sleep -Ativan and Haldol PRN for agitation/aggression -NRT -nicotine patch -SW on board for discharge planning. Encourage patient to participate in groups to work on coping skills. Likely discharge Tuesday, if patient continues to improve. Robert Casillas MD Active Medications Generic Name Dose Route Start Last Admin Trade Name Freq PRN Reason Stop Dose Admin Acetaminophen 650 mg 11/29/23 23:43 Acetaminophen Tab 325 Mg Tab PO Q4HR PRN Mild Pain (Scale 1 to 3) Al Hydroxide/Mg Hydroxide 30 ml 11/29/23 23:43 Mag Hydrox/Al Hydrox/Simeth 355 Ml Bottle PO Q4HR PRN GI Upset Benzocaine/Menthol 1 each 12/03/23 11:35 12/04/23 08:18 Benzocaine/Menthol Lozeng 1 Each Lozenge MUCOUS MEM 1 each Q6HR PRN Administration Sore Throat Buspirone HCl 20 mg 11/30/23 21:00 12/04/23 08:17 Buspirone Hcl 10 Mg Tab PO 20 mg BID SIMI Administration Haloperidol 5 mg 11/29/23 23:43 Haloperidol 5 Mg Tab PO Q6HR PRN Agitation Haloperidol Lactate 5 mg 11/29/23 23:43 Haloperidol Lactate 5 Mg/Ml 1 Ml Vial IM Q6HR PRN Severe Agitation Ibuprofen 600 mg 11/29/23 23:43 Ibuprofen 600 Mg Tab PO Q6HR PRN Moderate Pain (Scale 4 to 6) Loratadine 10 mg 12/04/23 11:15 12/04/23 11:39 Loratadine 10 Mg Tab PO 10 mg DAILY SIMI Administration Lorazepam 1 mg 11/29/23 23:43 12/04/23 03:31 Lorazepam 1 Mg Tab PO 1 mg Q6HR PRN Administration Anxiety Lorazepam 1 mg 11/29/23 23:43 Lorazepam 2 Mg/Ml Inj IM Q6HR PRN Severe Agitation Magnesium Hydroxide 2,400 mg 11/29/23 23:43 Magnesium Hydroxide 2,400 Mg/30 Ml Cup PO DAILY PRN Constipation Sertraline HCl 50 mg 11/30/23 12:15 12/04/23 08:17 Sertraline 50 Mg Tab PO 50 mg DAILY SIMI Administration Trazodone HCl 50 mg 11/29/23 23:43 Trazodone Hcl 50 Mg Tab PO HS PRN Insomnia Objective - Vital Signs Vital signs: Vital Signs Temp 98.1 F 12/04/23 06:00 Pulse 95 12/04/23 06:00 Resp 16 12/04/23 06:00 BP 108/56 12/04/23 06:00 Pulse Ox 98 12/04/23 06:00 FiO2 - Labs CBC & Chem 7: 11/30/23 11:35 11/30/23 11:35
[2023-12-04] MEDS: traZODone HCL 50 MG TAB PO PRN (20:15)
[2023-12-05 07:51] VITALS: BP 113/93; PULSE 69
--- NOTE | 2023-12-05 10:10 | P.DS ---
Providers Date of admission: 11/29/23 23:34 Expected date of discharge: 12/05/23 Attending physician: Finn Lr MD Consults: 11/29/23 23:43 Consult Physician Routine Consulting Provider: Doris Dockery Consult Reason/Comments: For Hh & P for Medical Follow Up Do you want consulting provider notified?: Yes Primary care physician: Stated None - Discharge Diagnosis(es) (1) Adjustment disorder with disturbance of emotion Current Visit: Yes Status: Acute Priority: High (2) Major depressive disorder without psychotic features Current Visit: Yes Status: Acute Priority: High (3) Anxiety disorder Current Visit: Yes Status: Acute Priority: Medium (4) Cannabis use disorder, mild, abuse Current Visit: Yes Status: Acute Priority: Medium Hospital Course: Admission HPI: Admission note was completed by racebook writer "Patient presented to the hospital on 11/28. As per EPS note, "pt's mother, Marion, at bedside; Marion remained at pt's request. pt presents with flat affect and soft tone. pt states, "I was going to jump in the river after work." pt reports that he has been struggling with multiple stressors recently. pt had apparently met his ex-girlfriend on a dating site and had signed a lease for the apartment with her after a couple of weeks. 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 pt states that he is now paying all the bills as well. pt also reports that he had lost his debit card and had a lot of fraudulant charges. pt states that he had told his ex that he was going to jump in the river and she called police. pt states that the police and her brother met him at work and brought him to the hospital. pt continues to report SI with plan. pt denies HI and hallucinations. No delusional thoughts verbalized. pt cooperative with assessment." Upon todays interview, patient states that he has been fighting with his girlfriend in the past month, which led to them breaking up. States he went to work, and just kept thinking about the fighting, and states that he had a plan to jump in the river, and he wanted to disappear. Claims he feels fine right now, but prior to coming in, he has been depressed, and anxious. Patient states he sleeps well, and his appetite is good. Patient denies any suicidal or homicidal ideations intent or plan. At this time patient denies any auditory or visual hallucinations. Patient denies any flight of ideas racing thoughts and increased in goal directed behavior. Patient admits to using marijuana, very rarely. Rarely drinks alcohol." Hospital course: Upon admission to the unit patient was directable and agreeable to commence treatment and signed adult voluntary form. Patient got along well with other patients on the unit and followed unit protocol. Patient was compliant with the medications and denied any side effects throughout hospital course. Patient was started on Zoloft increased to dose of 50 mg daily for mood/anxiety, BuSpar 20 mg twice daily for anxiety, trazodone as needed for sleep. Patient spoke of his stressors and engaged in therapy both group and individual. Patient was also seen by medical team for history and physical exam. Throughout the course of the hospitalization patient gradually improved with regards to mood, anxiety, sleep and became more future oriented with improved insight and judgment. On the day of discharge patient denied any suicidal or homicidal ideations intent or plan denied any auditory or visual hallucinations. Patient endorsed wanting to live for his health and family. The patient denied any access to guns or weapons. Patient denied any paranoia and did not endorse any delusions. Patient does have a significant history of substance abuse and was counseled on abstaining from all substances including alcohol and marijuana. Patient was also counseled on the medications and need for regular compliance and was encouraged to follow-up with their outpatient appointment for mental health and also for primary care. Prior to discharge a family meeting will be arranged by social media designer to answer any questions and ensure safety upon discharge. Mental status exam: General Appearance: Patient appears to be thin, wearing glasses, stated age is alert, pleasant, and cooperative. Patient is in no acute distress and has improved hygiene and grooming Behavior: Patient is calmly seated without any agitated behavior. Speech: Patient's speech is fluent and nonpressured. Mood/Affect: Patient reports their mood is "better", affect is congruent and euthymic. Suicidality/Homicidality: Patient denies having any suicidal or homicidal ideation intent or plan. Perceptions: Patient denies any auditory or visual hallucinations. Though content/process: There is no evidence of any delusional thought content and thought process is linear and goal-directed. More future oriented Memory and concentration: AOX3, grossly intact for the purposes of this session. Can spell "WORLD" backwards correctly. 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 -Continue medications: BuSpar 20 mg p.o. twice daily for anxiety, Zoloft 50 mg daily for mood/anxiety, trazodone 25 to 50 mg nightly as needed for insomnia -Patient was counseled on the need for medication compliance and appropriate follow-up at mental health and also primary care for medical issues. Patient verbalized understanding and agreed. -Social work to arrange for and conduct family meeting to ensure safety upon discharge and answer any questions/concerns. Social work also to arrange for patients follow up appointments for psychiatric care along with follow up with primary care provider. -Patient counseled on abstaining from recreational drugs and marijuana and alcohol. Was informed/educated on the adverse effects on their physical and mental health. Patient verbally agreed and understood. -Patient was instructed to return to the hospital or seek immediate medical care if their psychiatric or medical symptoms do worsen or reoccur. Allergies Allergy/AdvReac Type Severity Reaction Status Date / Time No Known Allergies Allergy Verified 11/29/23 23:47 Laboratory Results WBC 5.2 k/uL (3.8-10.6) 11/30/23 11:35 RBC 5.35 m/uL (4.30-5.90) 11/30/23 11:35 Hgb 16.3 gm/dL (13.0-17.5) 11/30/23 11:35 Hct 48.7 % (39.0-53.0) 11/30/23 11:35 MCV 91.0 fL (80.0-100.0) 11/30/23 11:35 MCH 30.4 pg (25.0-35.0) 11/30/23 11:35 MCHC 33.4 g/dL (31.0-37.0) 11/30/23 11:35 RDW 12.9 % (11.5-15.5) 11/30/23 11:35 Plt Count 214 k/uL (150-450) 11/30/23 11:35 MPV 7.7 11/30/23 11:35 Neutrophils % 50 % 11/30/23 11:35 Lymphocytes % 35 % 11/30/23 11:35 Monocytes % 9 % 11/30/23 11:35 Eosinophils % 2 % 11/30/23 11:35 Basophils % 1 % 11/30/23 11:35 Neutrophils # 2.6 k/uL (1.3-7.7) 11/30/23 11:35 Lymphocytes # 1.8 k/uL (1.0-4.8) 11/30/23 11:35 Monocytes # 0.4 k/uL (0-1.0) 11/30/23 11:35 Eosinophils # 0.1 k/uL (0-0.7) 11/30/23 11:35 Basophils # 0.0 k/uL (0-0.2) 11/30/23 11:35 Sodium 140 mmol/L (137-145) 11/30/23 11:35 Potassium 4.3 mmol/L (3.5-5.1) 11/30/23 11:35 Chloride 104 mmol/L (98-107) 11/30/23 11:35 Carbon Dioxide 28 mmol/L (22-30) 11/30/23 11:35 Anion Gap 8 mmol/L 11/30/23 11:35 BUN 18 mg/dL (9-20) 11/30/23 11:35 Creatinine 0.85 mg/dL (0.66-1.25) 11/30/23 11:35 Est GFR (CKD-EPI)AfAm >90 (>60 ml/min/1.73 sqM) 11/30/23 11:35 Est GFR (CKD-EPI)NonAf >90 (>60 ml/min/1.73 sqM) 11/30/23 11:35 Glucose 79 mg/dL (74-99) 11/30/23 11:[address] Glu mg/dL 103 mg/dL 11/30/23 11:35 Hemoglobin A1c 5.2 % (<=6.0) 11/30/23 11:35 Calcium 9.9 mg/dL (8.4-10.2) 11/30/23 11:35 Total Bilirubin 3.2 mg/dL (0.2-1.3) H 11/30/23 11:35 Conjugated Bilirubin 0.0 mg/dL (0.0-0.3) 11/30/23 11:35 Unconjugated Bilirubin 3.1 mg/dL (0.0-1.1) H 11/30/23 11:35 Delta Bilirubin 0.1 mg/dL (0.0-0.2) 11/30/23 11:35 AST 26 U/L (17-59) 11/30/23 11:35 ALT 15 U/L (4-49) 11/30/23 11:35 Alkaline Phosphatase 66 U/L (38-126) 11/30/23 11:35 Total Protein 8.4 g/dL (6.3-8.2) H 11/30/23 11:35 Albumin 5.0 g/dL (3.5-5.0) 11/30/23 11:35 Triglycerides 52.20 mg/dL (0.00-149.00) 11/30/23 11:35 Cholesterol 182.00 mg/dL (0.00-200.00) 11/30/23 11:35 LDL Cholesterol, Calc 103.9 mg/dL (0.0-131.0) 11/30/23 11:35 VLDL Cholesterol, Calc 10.44 mg/dL (5.00-40.00) 11/30/23 11:35 HDL Cholesterol 67.70 mg/dL (40.00-60.00) H 11/30/23 11:35 Cholesterol/HDL Ratio 2.69 Ratio 11/30/23 11:35 TSH 0.440 mIU/L (0.465-4.680) L 11/30/23 11:35 Total T4 5.3 ug/dL (4.5 - 10.9) 12/01/23 04:53 Free T4 0.91 ng/dL (0.78-2.19) 12/01/23 04:53 Urine Color Colorless 12/01/23 10:35 Urine Appearance Clear (Clear) 12/01/23 10:35 Urine pH 7.0 (5.0-8.0) 12/01/23 10:35 Ur Specific Sikes 1.008 (1.001-1.035) 12/01/23 10:35 Urine Protein Negative (Negative) 12/01/23 10:35 Urine Glucose (UA) Negative (Negative) 12/01/23 10:35 Urine Ketones Negative (Negative) 12/01/23 10:35 Urine Blood Negative (Negative) 12/01/23 10:35 Urine Nitrite Negative (Negative) 12/01/23 10:35 Urine Bilirubin Negative (Negative) 12/01/23 10:35 Urine Urobilinogen <2.0 mg/dL (<2.0) 12/01/23 10:35 Ur Leukocyte Esterase Negative (Negative) 12/01/23 10:35 Urine Opiates Screen Not Detected (NotDetected) 12/01/23 10:35 Ur Oxycodone Screen Not Detected (NotDetected) 12/01/23 10:35 Urine Methadone Screen Not Detected (NotDetected) 12/01/23 10:35 Ur Barbiturates Screen Not Detected (NotDetected) 12/01/23 10:35 U Tricyclic Antidepress Not Detected (NotDetected) 12/01/23 10:35 Ur Phencyclidine Scrn Not Detected (NotDetected) 12/01/23 10:35 Ur Amphetamines Screen Not Detected (NotDetected) 12/01/23 10:35 U Methamphetamines Scrn Not Detected (NotDetected) 12/01/23 10:35 U Benzodiazepines Scrn Not Detected (NotDetected) 12/01/23 10:35 Urine Cocaine Screen Not Detected (NotDetected) 12/01/23 10:35 U Marijuana (THC) Screen Not Detected (NotDetected) 12/01/23 10:35 Influenza Type A (PCR) Not Detected (Not Detectd) 11/29/23 22:44 Influenza Type B (PCR) Not Detected (Not Detectd) 11/29/23 22:44 RSV (PCR) Not Detected (Not Detectd) 11/29/23 22:44 SARS-CoV-2 (PCR) Not Detected (Not Detectd) 11/29/23 22:44 Vital Signs Temp 98.1 F 12/05/23 07:09 Pulse 69 12/05/23 07:09 Resp 16 12/05/23 07:09 BP 113/93 12/05/23 07:09 Pulse Ox 99 05/13/24 07:09 FiO2 Intake & Output 12/04/23 12/05/23 12/05/23 18:59 06:59 18:59 Weight 56.1 kg Patient Condition at Discharge: Stable Plan - Discharge Summary Discharge Rx Participant: Yes New Discharge Prescriptions: New Benzocaine/Menthol Lozeng [Cepacol lozenge] 1 each MUCOUS MEM Q6HR PRN lozenge PRN Reason: Sore Throat Sertraline [Zoloft] 50 mg PO DAILY 30 Days #30 tab busPIRone HCl [Buspar] 20 mg PO BID 30 Days #120 tab Loratadine [Claritin] 10 mg PO DAILY 30 Days #30 tab traZODone HCL [Desyrel] 25 - 50 mg PO HS PRN 14 Days #14 tab PRN Reason: Insomnia Discontinued Citalopram Hydrobromide [CeleXA] 40 mg PO DAILY busPIRone HCl [Buspar] 10 mg PO BID buPROPion XL [Wellbutrin XL] 150 mg PO DIRECTED Discharge Medication List Benzocaine/Menthol Lozeng [Cepacol lozenge] 1 each MUCOUS MEM Q6HR PRN lozenge 12/05/23 [Rx] Loratadine [Claritin] 10 mg PO DAILY 30 Days #30 tab 12/05/23 [Rx] Sertraline [Zoloft] 50 mg PO DAILY 30 Days #30 tab 12/05/23 [Rx] busPIRone HCl [Buspar] 20 mg PO BID 30 Days #120 tab 12/05/23 [Rx] traZODone HCL [Desyrel] 25 - 50 mg PO HS PRN 14 Days #14 tab 12/05/23 [Rx] Follow up Appointment(s)/Referral(s): [facility] - 12/07/23 9:30 am (12/06 @ 09:30 for paperwork please bring id, and insurance care 12/06 @ 10:00 with Ron ) [facility] [NON[facility]STAFF] - 1 Week Patient Instructions/Handouts: Depression (DC), Cannabis Abuse (DC), Anxiety (ED) Activity/Diet/Wound Care/Special Instructions: Activity and diet as tolerated. Avoid the use of street drugs and alcohol. Take all medications as prescribed. When you need refills on your medications, please contact your medical provider and/or outpatient psychiatrist to have this done. Please go to scheduled outpatient appointment for aftercare treatment. If symptoms return or become worse, call the crisis line at and/or go to the nearest emergency room for evaluation. Pt given discharge instructions, copies of after care, Pt v/u of information. In stable condition. Aware of resources.Belongings returned to patient at discharge, see Personal Property Sheet. Discharge instructions given with verbal understanding, papers signed and copies given in discharge folder. Patient verbalized ready for discharge denying suicidal and homicidal thoughts, verbalized intent to follow up at scheduled psychiatric appointments and take prescribed medications as ordered. Discharge Disposition: HOME SELF-CARE
== END 2023-12-05 12:44 | disposition home or self-care (01) | DRG 881 ==
LOC: EC 17:29 → 3MHU 23:34
PROVIDERS: ADMIT Psychiatry & Neurology Psychiatry; ATTEND Psychiatry & Neurology Psychiatry
DX: F43.21 Adjustment disorder with depressed mood (principal); R45.851 Suicidal ideations; E80.4 Gilbert syndrome; F12.90 Cannabis use, unspecified, uncomplicated; Z79.899 Other long term (current) drug therapy
CPT/HCPCS: 80053; 80061; 80306; 81003; 82075; 82248; 83036; 84436; 84439; 84443; 85025; 87636; 99291